=== PATIENT | male | born 1965 | race American Indian/Alaskan Native ===

== ENCOUNTER 2016-09-02 15:37 | Emergency (ER) | payer OTHER ==
[2016-09-02 15:49] VITALS: RESP 18
[2016-09-02] MEDS ORDERED: Sodium Chloride 0.9% 1,000 ML IV STA (16:05)
--- NOTE | 2016-09-02 16:39 | ED PDOC ---
Addendum entered and electronically signed by Socorro Suárez PA-C 11:18: Addendum Addendum: 09/05/16 11:16 Throat Culture resulted (+) Strep Pyogenes Group A Pt contacted and made aware. Pt reports no symptoms at this time. declined antibiotics Original Note: HPI: General Adult Chief Complaint (Provider): fever History Per: Patient <Socorro Esteves - Last Filed: 09/02/16 20:01> <Socorro Rocha - Last Filed: 09/04/16 16:53> Time Seen by Provider: 09/02/16 15:56 Chief Complaint (Nursing): Fever Additional Complaint(s): 51-year-old male with no past medical history presents to emergency department with fever and body aches that started 3 days ago. He has also noticed darker color to his urine as of the past 3 days. He denies any nausea, vomiting, diarrhea or constipation. Patient states earlier today he felt mid sternal chest pressure that has since resolved. He denies any shortness of breath or dyspnea on exertion. No associated coughing or congestion. He denies any recent travel or known sick contacts. Kidneys. Patient reports vague intermittent right-sided flank and lower quadrant pain that has been ongoing for several months. He states that in May of this past year he had CT abdomen and pelvis which she was told was negative. (Socorro Esteves) Past Medical History Reviewed: Historical Data, Nursing Documentation, Vital Signs - Medical History PMH: No Chronic Diseases - Surgical History Surgical History: No Surg Hx - Family History Family History: States: No Known Family Hx - Living Arrangements Living Arrangements: With Family - Social History Current smoker - smoking cessation education provided: No Alcohol: None Drugs: Denies <Socorro Esteves - Last Filed: 09/02/16 20:01> <Socorro Rocha - Last Filed: 09/04/16 16:53> Vital Signs: Last Vital Signs Temp 98.9 F 09/02/16 20:08 Pulse 79 09/02/16 20:08 Resp 18 09/02/16 20:08 BP 113/57 L 09/02/16 20:08 Pulse Ox 99 09/02/16 20:20 - Allergies Allergies/Adverse Reactions: Allergies Allergy/AdvReac Type Severity Reaction Status Date / Time No Known Allergies Allergy Verified 09/02/16 15:46 Review of Systems ROS Statement: Except As Marked, All Systems Reviewed And Found Negative Constitutional: Positive for: Fever, Other (body aches) Cardiovascular: Positive for: Chest Pain Respiratory: Negative for: Cough, Shortness of Breath, SOB with Exertion Gastrointestinal: Positive for: Abdominal Pain (ongoing for several months). Negative for: Nausea, Vomiting Genitourinary Male: Positive for: Other (dark urine color x 3 days). Negative for: Dysuria, Frequency, Incontinence, Penile Discharge Neurological: Negative for: Weakness, Headache, Dizziness <Socorro Esteves - Last Filed: 09/02/16 20:01> Physical Exam - Reviewed Nursing Documentation Reviewed: Yes Vital Signs Reviewed: Yes - Physical Exam Appears: Positive for: Well, Non-toxic, No Acute Distress Head Exam: Positive for: ATRAUMATIC Skin: Negative for: Rash Eye Exam: Positive for: Normal appearance ENT: Positive for: Pharyngeal Erythema Neck: Positive for: Painless ROM Cardiovascular/Chest: Positive for: Regular Rate, Rhythm Respiratory: Positive for: Normal Breath Sounds. Negative for: Wheezing, Respiratory Distress Gastrointestinal/Abdominal: Positive for: Soft, Tenderness (mild tenderness RUQ and RLQ, no distention, rebound or guarding, normoactive bowel sounds in all 4 quadrants) Back: Negative for: L CVA Tenderness, R CVA Tenderness, Vertebral Tenderness Extremity: Negative for: Pedal Edema Neurologic/Psych: Positive for: Alert, Oriented, Gait (steady) <Socorro Esteves - Last Filed: 09/02/16 20:01> - Laboratory Results Result Diagrams: 09/02/16 16:50 09/02/16 16:50 Urine dip results: Positive for: Blood (trace), Bilirubin (moderate). Negative for: Leukocyte Esterase, Nitrate, Ketones, Glucose, Protein - ECG O2 Sat by Pulse Oximetry: 99 Pulse Ox Interpretation: Normal - Other Rad Bedside chest X-Ray: Interpreted by Me, Viewed By Me X-Ray Interpretation: no acute finding Abd US X-Ray: Read By Radiologist X-Ray Interpretation: see below Bladder US X-Ray: Read By Radiologist X-Ray Interpretation: normal study - V rad report <Socorro Esteves - Last Filed: 09/02/16 20:01> - Laboratory Results Result Diagrams: 09/02/16 16:50 09/02/16 16:50 <Socorro oRcha - Last Filed: 09/04/16 16:53> - ECG Interpretation Of ECG: NSR 94 bpm, RBBB, reviewed by PA and ED attending. (Socorro Esteves) Medical Decision Making <Socorro Esteves - Last Filed: 09/02/16 20:01> <Socorro Rocha - Last Filed: 09/04/16 16:53> Medical Decision Makin51 year old with fever and body aches Plan: CXR EKG CBC CMP Trop UA Urine culture Rapid strep and throat culture Flu swab IVF PO motrin and tylenol Abd and bladder US PSA Abd US: The gallbladder is moderately contracted, with no stones nor sludge identified. No biliary obstruction is seen. No hydronephrosis. The spleen is enlarged. Case was d/w Dr. Rocha in detail. Further labs ordered including coags, monospot, hepatitis panel and rapid strep (Socorro Esteves) Disposition - Patient ED Disposition Is Patient to be Admitted: Transfer of Care - Disposition Disposition: Transfer of Care Disposition Time: 20:19 Patient Signed Over To: Socorro Rocha Handoff Comments: Signed out pending diagnostic testing results and final disposition <Socorro Esteves - Last Filed: 09/02/16 20:01> - Disposition Disposition: Routine/Home Handoff Comments: Rec'd endorsment from Danielito LEONE. Pt's labs demonstrated mild leukopenia, mod thrombocytopenia, minimally deranged coags, and elevated bilirubin. Pt has no signs/symptoms of bleeding. Very subtle jaundice. DW pt findings and urgent follow up with PMD/GI recommend. Pt stable for discharge and eager to go home. <Socorro Rocha - Last Filed: 09/04/16 16:53> - Clinical Impression Clinical Impression: Fever, Hyperbilirubinemia, Thrombocytopenia - Disposition Referrals: [facility] [Outside] April GARCÍA,MD [place] [Medical Doctor] - Condition: STABLE Additional Instructions: PLEASE FOLLOW UP WITH YOUR DOCTOR BY MONDAY FOR FURTHER EVALUATION. 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 RETURN TO ER IMMEDIATELY FOR WORSENING SYMPTOMS, INCLUDING BUT NOT LIMITED TO UNEXPLAINED BLEEDING OR BRUISING, SEVERE PAIN, FAINTING OR NEAR FAINTING, CHEST PAIN OR SHORTNESS OF BREATH. Instructions: Viral Syndrome (ED), Jaundice (ED), Thrombocytopenia (ED) Forms: [facility] ED School/Work Excuse Results <Socorro Esteves - Last Filed: 09/02/16 20:01> <Socorro Rocha - Last Filed: 09/04/16 16:53> - Lab Results Lab Results: 09/02/16 09/02/16 09/02/16 20:55 20:55 20:55 WBC RBC Hgb Hct MCV MCH MCHC RDW Plt Count MPV Neut % (Auto) Lymph % (Auto) Osborne % (Auto) Eos % (Auto) Baso % (Auto) Neut # Lymph # Osborne # Eos # Baso # PT 12.2 H INR 1.17 H APTT 33.4 H pO2 VBG pH VBG pCO2 VBG HCO3 VBG Total CO2 VBG O2 Sat (Calc) VBG Base Excess VBG Potassium Glucose Lactate FiO2 Sodium Potassium Chloride Carbon Dioxide Anion Gap BUN Creatinine Est GFR ( Amer) Est GFR (Non-Af Amer) Random Glucose Calcium Total Bilirubin 4.7 H Direct Bilirubin 2.9 H AST 61 H ALT 60 Alkaline Phosphatase 126 Troponin I Total Protein 7.0 Albumin 3.6 Globulin 3.4 Albumin/Globulin Ratio 1.1 Prostate Specific Ag Venous Blood Potassium Urine Color Urine Clarity Urine pH Ur Specific [place] Urine Protein Urine Glucose (UA) Urine Ketones Urine Blood Urine Nitrate Urine Bilirubin Urine Urobilinogen Ur Leukocyte Esterase Urine RBC (Auto) Urine Microscopic WBC Urine Bacteria Infectious Osborne Assay Influenza Typ A,B (EIA) Grp A Beta Strep Ag Negative 09/02/16 09/02/16 09/02/16 20:55 17:20 17:14 WBC RBC Hgb Hct MCV MCH MCHC RDW Plt Count MPV Neut % (Auto) Lymph % (Auto) [place]borne % (Auto) Eos % (Auto) Baso % (Auto) Neut # Lymph # Osborne # Eos # Baso # PT INR APTT pO2 VBG pH VBG pCO2 VBG HCO3 VBG Total CO2 VBG O2 Sat (Calc) VBG Base Excess VBG Potassium Glucose Lactate FiO2 Sodium Potassium Chloride Carbon Dioxide Anion Gap BUN Creatinine Est GFR ( Amer) Est GFR (Non-Af Amer) Random Glucose Calcium Total Bilirubin Direct Bilirubin AST ALT Alkaline Phosphatase Troponin I Total Protein Albumin Globulin Albumin/Globulin Ratio Prostate Specific Ag Venous Blood Potassium Urine Color Urine Clarity Urine pH Ur Specific [place] Urine Protein Urine Glucose (UA) Urine Ketones Urine Blood Urine Nitrate Urine Bilirubin Urine Urobilinogen Ur Leukocyte Esterase Urine RBC (Auto) Urine Microscopic WBC Urine Bacteria Infectious [place]borne Assay Negative Influenza Typ A,B (EIA) Negative for flu a/b Grp A Beta Strep Ag Negative 09/02/16 09/02/16 09/02/16 16:55 16:50 16:50 WBC RBC Hgb Hct MCV MCH MCHC RDW Plt Count MPV Neut % (Auto) Lymph % (Auto) Osborne % (Auto) Eos % (Auto) Baso % (Auto) Neut # Lymph # [place] # Eos # Baso # PT INR APTT pO2 16 L VBG pH 7.38 VBG pCO2 52 VBG HCO3 26.3 VBG Total CO2 32.4 H VBG O2 Sat (Calc) 22.1 L VBG Base Excess 4.4 H VBG Potassium 4.0 Glucose 99 Lactate 1.4 FiO2 21.0 Sodium 135.0 139 Potassium 3.9 Chloride 100.0 99 Carbon Dioxide 29 Anion Gap 16 BUN 8 L Creatinine 1.1 Est GFR ( Amer) > 60 Est GFR (Non-Af Amer) > 60 Random Glucose 101 Calcium 9.3 Total Bilirubin 4.5 H Direct Bilirubin AST 65 H D ALT 66 Alkaline Phosphatase 136 H D Troponin I 0.0220 Total Protein 8.0 Albumin 4.3 Globulin 3.7 Albumin/Globulin Ratio 1.1 Prostate Specific Ag 1.66 Venous Blood Potassium 4.0 Urine Color Shanell Urine Clarity Slighty-cloudy Urine pH 5.0 Ur Specific [place] 1.017 Urine Protein 30 Urine Glucose (UA) 50 Urine Ketones Negative Urine Blood Small Urine Nitrate Negative Urine Bilirubin Small Urine Urobilinogen 4.0 Ur Leukocyte Esterase Neg Urine RBC (Auto) 3 Urine Microscopic WBC 5 Urine Bacteria Rare Infectious [place]borne Assay Influenza Typ A,B (EIA) Grp A Beta Strep Ag 09/02/16 16:50 WBC 3.3 L RBC 4.67 Hgb 13.4 Hct 40.7 MCV 87.1 MCH 28.7 MCHC 33.0 RDW 12.8 Plt Count 86 L D MPV 9.8 Neut % (Auto) 75.3 H Lymph % (Auto) 10.2 L [place] % (Auto) 13.9 H Eos % (Auto) 0.0 Baso % (Auto) 0.6 Neut # 2.5 Lymph # 0.3 L [place]borne # 0.5 Eos # 0.0 Baso # 0.0 PT INR APTT pO2 VBG pH VBG pCO2 VBG HCO3 VBG Total CO2 VBG O2 Sat (Calc) VBG Base Excess VBG Potassium Glucose Lactate FiO2 Sodium Potassium Chloride Carbon Dioxide Anion Gap BUN Creatinine Est GFR ( Amer) Est GFR (Non-Af Amer) Random Glucose Calcium Total Bilirubin Direct Bilirubin AST ALT Alkaline Phosphatase Troponin I Total Protein Albumin Globulin Albumin/Globulin Ratio Prostate Specific Ag Venous Blood Potassium Urine Color Urine Clarity Urine pH Ur Specific [place] Urine Protein Urine Glucose (UA) Urine Ketones Urine Blood Urine Nitrate Urine Bilirubin Urine Urobilinogen Ur Leukocyte Esterase Urine RBC (Auto) Urine Microscopic WBC Urine Bacteria Infectious [place]borne Assay Influenza Typ A,B (EIA) Grp A Beta Strep Ag
--- NOTE | 2016-09-02 16:49 | RAD ---
HISTORY: clearance COMPARISON: None available. TECHNIQUE: Chest, one view. FINDINGS: LUNGS: No focal consolidation. Please note that chest x-ray has limited sensitivity for the detection of pulmonary masses. PLEURA: No significant pleural effusion identified. No definite pneumothorax . CARDIOVASCULAR: The cardiomediastinal silhouette appears within normal limits of size. OSSEOUS STRUCTURES: No acute osseous abnormality identified. VISUALIZED UPPER ABDOMEN: Unremarkable. OTHER FINDINGS: None. IMPRESSION: No focal consolidation, significant pleural effusion, or definite pneumothorax identified.
[2016-09-02 17:01] LABS: VENOUS BLOOD GAS BASE EXCESS 4.4 mmol/L (0.0-2.0); VENOUS BLOOD GAS PCO2 52 mmHg (40-60); VENOUS BLOOD PH 7.38 (7.32-7.43)
[2016-09-02 17:25] LABS: BASO % 0.6 % (0.0-2.0); CHLORIDE 99 mmol/L (98-107); HEMATOCRIT 40.7 % (35.0-51.0); LYMPH # 0.3 K/uL (1.0-4.3); LYMPH % 10.2 % (20.0-40.0); MEAN CELL VOLUME 87.1 fl (80.0-94.0); MEAN CORPUSCULAR HEMOGLOBIN 28.7 pg (27.0-31.0); MEAN PLATELET VOLUME 9.8 fl (7.2-11.7); MONO # 0.5 K/uL (0.0-0.8); MONO % 13.9 % (0.0-10.0); NEUT # 2.5 K/uL (1.8-7.0); NEUT % 75.3 % (50.0-75.0); NRBC % 0.2 % (0.0-0.0); RED CELL DISTRIBUTION WIDTH 12.8 % (11.5-14.5); WHITE BLOOD COUNT 3.3 K/uL (4.8-10.8)
[2016-09-02 17:26] LABS: POTASSIUM 3.9 MMOL/L (3.6-5.0); SODIUM 139 mmol/l (132-148)
[2016-09-02 17:28] LABS: ALB/GLOB RATIO 1.1 (1.0-2.1); ALKALINE PHOSPHATASE 136 U/L (38-126); ALT/SGPT 66 U/L (21-72); AST/SGOT 65 U/L (17-59); BILIRUBIN,TOTAL 4.5 mg/dl (0.2-1.3); BLOOD UREA NITROGEN 8 mg/dl (9-20); CARBON DIOXIDE 29 mmol/L (22-30); GFR AFRICAN-AMERICAN > 60
[2016-09-02 17:29] LABS: CALCIUM 9.3 mg/dL (8.4-10.2); GLUCOSE,RANDOM 101 mg/dL (75-110)
[2016-09-02 17:47] LABS: RBC URINE 3 /hpf (0-3); URINE BACTERIA RARE (<OCC); URINE BILIRUBIN SMALL (NEGATIVE); URINE BLOOD SMALL (NEGATIVE); URINE COLOR AMBER (YELLOW); URINE GLUCOSE (UA) 50 mg/dL (Normal); URINE KETONE NEGATIVE (NEGATIVE); URINE LEUKOCYTE ESTERASE NEG Leu/uL (Negative); URINE PROTEIN 30 mg/dL (NEGATIVE); WBC URINE 5 /hpf (0-5)
[2016-09-02 18:18] LABS: PROSTATE SPECIFIC ANTIGEN 1.66 ng/ML (0.00-4.0)
[2016-09-02 20:08] VITALS: BP 113/57; PULSE 79; TEMP 98.9
[2016-09-02 20:18] VITALS: O2SAT 99
[2016-09-02 21:33] LABS: ALB/GLOB RATIO 1.1 (1.0-2.1); BILIRUBIN,TOTAL 4.7 mg/dl (0.2-1.3)
[2016-09-02 21:39] LABS: PARTIAL THROMBOPLASTIN TIME 33.4 SECONDS (23.3-32.5)
--- NOTE | 2016-09-03 09:13 | US ---
PROCEDURE: Ultrasound of the Bladder HISTORY: abdominal pain COMPARISON: None available. TECHNIQUE: Sonographic evaluation of the bladder was performed. FINDINGS: Unremarkable without wall thickening or intraluminal debris. No calculus or gross mass lesion. No free fluid in pelvis. Ureteral jets were noted bilaterally. Prevoid Volume: 131 cc. Post void residual: 6 cc. IMPRESSION: Minimal postvoid residual. No evidence of urinary bladder calculus.
--- NOTE | 2016-09-03 09:17 | US ---
HISTORY: abdominal pain and distention COMPARISON: None. TECHNIQUE: Sonographic evaluation of the abdomen. FINDINGS: LIVER: Measures 13.1 cm. Normal echogenicity of the liver parenchyma. No mass. No intrahepatic bile duct dilatation. GALLBLADDER: Gallbladder is contracted limiting evaluation. No gallbladder wall thickening is seen. No gallstones or significant gallbladder sludge is noted. No pericholecystic fluid is noted. No sonographic Elder sign was elicited. COMMON BILE DUCT: Measures 2.7 mm. No stones. No dilatation. PANCREAS: Pancreas was suboptimally identified due to overlying bowel gas. The body of the pancreas appeared to be normal in outline. Head and tail the pancreas were obscured by bowel gas and not adequately evaluated on this exam. RIGHT KIDNEY: Measures 11cm. Normal echogenicity. No calculus, mass, or hydronephrosis. LEFT KIDNEY: Measures 11.9cm. Normal echogenicity. No calculus, mass, or hydronephrosis. SPLEEN: Spleen is mildly this agrees with preliminary enlarged measuring 13.4 centimeters in length. AORTA: No aneurysmal dilatation. IVC: Unremarkable. OTHER FINDINGS: None. IMPRESSION: Limited evaluation of the gallbladder secondary to the gallbladder being contracted. No gallstones or gallbladder wall thickening clearly seen. No hydronephrosis. This agrees with preliminary report. Mildly enlarged spleen.
--- NOTE | 2016-09-03 09:28 | CARD ---
APPROVED REPORT EKG Measurement Heart [id number] <Conclusion> Normal sinus rhythm Possible Left atrial enlargement Incomplete right bundle branch block Borderline ECG
== END 2016-09-02 22:39 | disposition home or self-care (01) ==
LOC: H.ER 15:37
DX: D69.6 Thrombocytopenia, unspecified (principal); E80.6 Other disorders of bilirubin metabolism; R50.9 Fever, unspecified; R10.9 Unspecified abdominal pain; R07.89 Other chest pain; I45.10 Unspecified right bundle-branch block; R16.1 Splenomegaly, not elsewhere classified